=== PATIENT | male | born 1980 | race Caucasian/White ===

== ENCOUNTER 2019-04-12 16:09 | Emergency (ER) | payer OTHER ==
[~2019-04-12] VITALS: Ht 177.8 cm; Wt 83.9 kg
[2019-04-12] MEDS ORDERED: VASOTEC10 MG PO (17:56)
[2019-04-12] MEDS ORDERED: ANUSOL-HC25 MG RECTAL (17:56)
[2019-04-12] MEDS ORDERED: ENALAPRIL MALEA10 MG (18:06)
== END 2019-04-12 18:10 | disposition home or self-care (01) ==
LOC: ER 16:09
DX: I10 Essential (primary) hypertension (principal)

== ENCOUNTER → 2019-04-13 | Outpatient (CLI) | payer OTHER ==
[~2019-04-13] MED LIST: ANUSOL-HC25 MG RECTAL; ENALAPRIL MALEA10 MG; VASOTEC10 MG PO
== END | disposition home or self-care (01) ==
LOC: RAD 10:00
DX: I10 Essential (primary) hypertension (principal); Z00.00 Encounter for general adult medical examination without abnormal findings

== ENCOUNTER → 2019-04-13 | Outpatient (CLI) | payer OTHER | END | disposition home or self-care (01) | LOC: LAB 10:33 | DX: I10 Essential (primary) hypertension (principal); Z13.29 Encounter for screening for other suspected endocrine disorder; E78.00 Pure hypercholesterolemia, unspecified; Z00.00 Encounter for general adult medical examination without abnormal findings ==